=== PATIENT | female | born 1995 | race Caucasian/White ===

== ENCOUNTER 2019-05-26 13:54 | Outpatient (CLI) | payer MEDICAID ==
[2019-05-26 17:22] LABS: ALANINE AMINOTRANSFERASE 28 IU/L (13-69); ALBUMIN 3.4 g/dl (3.3-4.9); ALBUMIN/GLOBULIN RATIO 1.06; ALKALINE PHOSPHATASE 130 IU/L (42-121); ANION GAP 6 (5-13); ASPARTATE AMINO TRANSFERASE 23 IU/L (15-46); BILIRUBIN,INDIRECT 0.2 mg/dl (0-1.1); BILIRUBIN,TOTAL 0.2 mg/dl (0.2-1.3); BLOOD UREA NITROGEN 8 mg/dl (7-20); CALCIUM 9.5 mg/dl (8.4-10.2); CARBON DIOXIDE 23 mmol/L (21-31); CHLORIDE 105 mmol/L (97-110); CREATININE 0.47 mg/dl (0.44-1.00); Estimated GFR > 60 mL/min (>60); GLUCOSE 81 mg/dl (70-220); POTASSIUM 4.1 mmol/L (3.5-5.1); SODIUM 134 mmol/L (135-144); TOTAL PROTEIN 6.6 g/dl (6.1-8.1)
[2019-05-29 15:16] LABS: CHENODEOXYCHOLIC ACID 2.6 umol/L (< OR = 3.1); CHOLIC ACID 2.1 umol/L (< OR = 1.8); TOTAL BILE ACIDS 5.7 umol/L (< OR = 6.8)
== END 2019-05-26 19:10 | disposition home or self-care (01) ==
LOC: OBT 13:54 → L-D 13:55 → OBT 19:10
DX: O26.893 Other specified pregnancy related conditions, third trimester (principal); L29.9 Pruritus, unspecified; Z3A.37 37 weeks gestation of pregnancy
CPT/HCPCS: 76818; 80053; 83789

== ENCOUNTER 2019-06-01 21:42 | Emergency (ER) | payer MEDICAID | END 2019-06-02 01:43 | disposition left against medical advice (07) | LOC: FTE 06-02 01:43 | DX: O26.893 Other specified pregnancy related conditions, third trimester (principal); R21 Rash and other nonspecific skin eruption; Z3A.38 38 weeks gestation of pregnancy | CPT/HCPCS: 99282; Z7502 ==